=== PATIENT | female | born 1960 | race Caucasian/White ===

== ENCOUNTER 2018-09-13 13:23 | Outpatient (CLI) | payer BC ==
[~2018-09-13] VITALS: Ht 165.1 cm; Wt 58.6 kg
[2018-09-13 14:19] VITALS: BP 121/61; Ht 165.1 cm; Wt 58.6 kg
== END 2018-09-13 15:05 | disposition home or self-care (01) ==
LOC: D.OPS 13:23
DX: M81.0 Age-related osteoporosis without current pathological fracture (principal)

== ENCOUNTER 2019-03-15 13:54 | Outpatient (CLI) | payer BC ==
[~2019-03-15] VITALS: Ht 165.1 cm; Wt 63.6 kg
[2019-03-15 14:28] VITALS: BP 110/58; Ht 165.1 cm; Wt 63.6 kg
== END 2019-03-15 14:40 | disposition home or self-care (01) ==
LOC: D.OPS 13:54
PROVIDERS: ATTEND Family Medicine
DX: M81.0 Age-related osteoporosis without current pathological fracture (principal)

== ENCOUNTER 2019-10-17 13:28 | Outpatient (CLI) | payer BC ==
[~2019-10-17] VITALS: Ht 165.1 cm; Wt 64.5 kg
[2019-10-17 13:57] VITALS: BP 119/81; Ht 165.1 cm; Wt 64.5 kg
== END 2019-10-17 14:15 | disposition home or self-care (01) ==
LOC: D.OPS 13:28
PROVIDERS: ATTEND Family Medicine
DX: M81.0 Age-related osteoporosis without current pathological fracture (principal)

== ENCOUNTER 2020-04-29 12:21 | Outpatient (CLI) | payer BC ==
[~2020-04-29] VITALS: Ht 165.1 cm; Wt 63.6 kg
[2020-04-29 12:37] VITALS: BP 113/63; Ht 165.1 cm; Wt 63.6 kg
== END 2020-04-29 12:43 | disposition home or self-care (01) ==
LOC: D.OPS 12:21
PROVIDERS: ATTEND Family Medicine
DX: M81.0 Age-related osteoporosis without current pathological fracture (principal)

== ENCOUNTER 2020-11-06 13:13 | Outpatient (CLI) | payer BC ==
[~2020-11-06] VITALS: Ht 165.1 cm; Wt 67.3 kg
[2020-11-06 15:02] VITALS: BP 101/55; Ht 165.1 cm; Wt 67.3 kg
== END 2020-11-06 14:14 | disposition home or self-care (01) ==
LOC: D.OPS 13:13
PROVIDERS: ATTEND Family Medicine
DX: M81.0 Age-related osteoporosis without current pathological fracture (principal)